=== PATIENT | female | born 1990 | race Caucasian/White ===

== ENCOUNTER 2017-01-21 07:22 | Inpatient (IN) | payer BC ==
[2017-01-21] VITALS (8 sets, daily range): BP systolic 119–131; BP diastolic 59–80
[~2017-01-21 07:22] MED LIST: ALESSE-281 EACH PO; ALLEGRA180 MG PO; ENDOCET 5-3251 EACH PO; FLONASE16 GM NS; FOCALIN XR30 MG PO; HYDROCODON-ACE1 EAC7 PO; MIRENA52 MG IY; MOTRIN800 MG PO; Motrin PO; OMEPRAZOLE40 M1 PO; PROTONIX40 MG PO; PULMICORT180 MICROG IH
[2017-01-21] MEDS ORDERED: MOTRIN800 MG PO (11:51)
[2017-01-22 05:11] LABS: EOSINOPHIL (%) 1.6 % (0-5); EOSINOPHIL COUNT 0.2 K/uL (0-0.3); HEMATOCRIT 26.9 % (36.0-46.0); IMMATURE GRANULOCYTE (%) 0.9 % (0.0-0.7); IMMATURE GRANULOCYTE COUNT 0.1 K/uL; INSTRUMENT ABS NEUTROPHIL CT 5.3 K/uL; LYMPHOCYTE COUNT 2.9 K/uL (1.0-2.8); MCH 30.5 PG (29.0-34.0); MCHC 34.6 G/DL (30.0-36.0); MCV 88.2 FL (83-99); MEAN PLAT.VOLUME 10.7 uM^3 (9.5-12.4); MONOCYTE (%) 6.9 % (3-12); MONOCYTE COUNT 0.6 K/uL (0-0.8); NEUTROPHIL (%) 58.1 % (45-76); NEUTROPHIL COUNT 5.3 K/uL (1.8-6.4); PLATELET COUNT 168 K/uL (156-360); RBC DIS.WIDTH-CV 11.7 % (11.8-14.6); RBC DIS.WIDTH-SD 37.2 % (39-53); RED BLOOD COUNT 3.05 M/uL (3.80-5.20); WHITE BLOOD COUNT 9.1 K/uL (4.1-10.2)
[2017-01-22 07:18] VITALS: BP 128/73
== END 2017-01-22 15:10 | disposition home or self-care (01) | DRG 774 ==
LOC: LDRP-OP 07:22 → 2WEST 07:23 → LDRP-OP 13:07 → 2WEST 01-22 15:10 → LDRP-OP 02-28 11:51
PROVIDERS: Midwife
PROC: 10E0XZZ Delivery of Products of Conception, External Approach (ICD-10-PCS; principal; 2017-01-21)
PROC: 10907ZC Drainage of Amniotic Fluid, Therapeutic from Products of Conception, Via Natural or Artificial Opening (ICD-10-PCS; 2017-01-21)
PROC: 3E033VJ Introduction of Other Hormone into Peripheral Vein, Percutaneous Approach (ICD-10-PCS; 2017-01-21)
DX: O99.214 Obesity complicating childbirth (principal); D62 Acute posthemorrhagic anemia; O98.32 Other infections with a predominantly sexual mode of transmission complicating childbirth; E66.9 Obesity, unspecified; Z68.33 Body mass index [BMI] 33.0-33.9, adult; Z3A.39 39 weeks gestation of pregnancy; Z37.0 Single live birth; K21.9 Gastro-esophageal reflux disease without esophagitis; O99.62 Diseases of the digestive system complicating childbirth; O99.02 Anemia complicating childbirth; O28.2 Abnormal cytological finding on antenatal screening of mother; A63.0 Anogenital (venereal) warts; F90.9 Attention-deficit hyperactivity disorder, unspecified type; Z98.84 Bariatric surgery status; Z88.0 Allergy status to penicillin
CPT/HCPCS: 85025; J3010; J7120